=== PATIENT | male | born 1980 ===

== ENCOUNTER 2022-02-08 23:55 | Emergency (ER) | payer SELFPAY ==
[~2022-02-08 23:55] MED LIST: Iopamidol 300 61% 100 ML VIAL FS ONE; Ketorolac Tromethamine 30 MG/ML VIAL ONE; Morphine 4 MG/ML VIAL ONE; Ondansetron PF 4 MG/2 ML Vial ONE
[2022-02-09 00:34] LABS: #Monocytes 0.4 10x3/uL (0.0-1.1); %Basophils 0.3 % (0.0-2.0); %Eosinophils 0.3 % (0.0-6.0); %Lymphocytes 16.6 % (18.0-47.0); %Monocytes 3.7 % (0.0-10.0); %Neutrophils 78.8 % (40.0-75.0); Hemoglobin 18.2 g/dL (13.5-17.5); Mean Corpuscular HGB CONC 36.8 g/dL (32.0-36.0); Mean Corpuscular Hemoglobin 30.2 pg (27.0-33.0); Mean Corpuscular Volume 82.2 fl (81.2-95.1); Mean Platelet Volume 11.3 fl (7.4-10.4); Platelet Count 150 10x3/uL (150-450); RBC Distribution Width 11.8 % (11.5-14.5); Red Blood Cell (RBC) Count 6.02 10x6/uL (4.32-5.72); White Blood Cell (WBC) Count 10.2 10x3/uL (3.5-10.5)
[2022-02-09 00:42] LABS: ALT (SGPT) 7 U/L (8-55); AST (SGOT) 10 U/L (5-34); Albumin 3.9 g/dL (3.5-5.0); Alkaline Phosphatase 79 U/L (40-110); Anion Gap 18 mmol/L (10-20); BUN (Urea Nitrogen) 18 mg/dL (8.9-20.6); Calc. Creatinine Clearance 0 mL/min (70-130); Calcium 9.4 mg/dL (7.8-10.44); Carbon Dioxide 19 mmol/L (22-29); Chloride 101 mmol/L (98-107); Estimated GFR 106; Globulin 3.7 g/dL (2.4-3.5); Glucose 342 mg/dL (70-105); Lipase 11 U/L (8-78); Potassium 3.4 mmol/L (3.5-5.1); Protein, Total 7.6 g/dL (6.0-8.3); Sodium 135 mmol/L (136-145)
[2022-02-09 01:39] LABS: Bilirubin Neg (Negative); Blood, Urine Negative (Negative); Clarity Clear (Clear); Glucose, Urine (Dipstick) >=1000 mg/dL (Negative); Ketone, Urine 150 mg/dL (Negative); Leukocyte Negative (Negative); Nitrite Negative (Negative); Protein, Urine (Dipstick) 30 mg/dl (Neg-Trace); Urobilinogen Normal mg/dL (Less than 2)
[2022-02-09 01:52] LABS: Bacteria/HPF Rare-Few HPF (None Seen); RBC/HPF 0-3 HPF (0-3); Squamous Epithelial 0-3 HPF (0-3); WBC/HPF 0-3 HPF (0-3)
[2022-02-09] MEDS ORDERED: diphenhydrAMINE 50 MG/ML VIAL ONE (02:37)
[2022-02-09] MEDS ORDERED: Insulin Regular 300 UNITS/3 ML VIAL ONE (02:37)
[2022-02-09] MEDS ORDERED: Metoclopramide HCl 10 MG/2 ML VIAL ONE (02:37)
== END 2022-02-09 04:35 | disposition home or self-care (01) ==
LOC: CSHERS 23:55 → EDBD 23:55 → CSHERS 02-09 04:35
DX: E11.43 Type 2 diabetes mellitus with diabetic autonomic (poly)neuropathy (principal); K31.84 Gastroparesis; I10 Essential (primary) hypertension
CPT/HCPCS: 36415; 74177; 80053; 81003; 81015; 83605; 83690; 85025; 87040; 87086; 96361; 96374; 96375; J1200; J1815; J1885; J2270; J2405; J2765; Q9967